=== PATIENT | female | born 1985 | race Caucasian/White ===

== ENCOUNTER 2017-11-23 08:06 | Emergency (ER) | payer BC ==
[2017-11-23 08:11] VITALS: O2SAT 100; BMI 24.3
[2017-11-23] MEDS ORDERED: Sodium Chloride 0.9% 1,000 ML IV STA (08:20)
--- NOTE | 2017-11-23 08:24 | ED PDOC ---
Syncope/Near Syncope/Dizziness Time Seen by Provider: 11/23/17 08:20 History Per: Patient Onset/Duration Of Symptoms: Hrs (1) Current Symptoms Are (Timing): Intermittent Episodes Activity At Onset Of Symptoms: Change In Head Position Associated Symptoms Preceding Syncopal Episode: No Predromal Symptoms (Sudden Onset) Seizure Or Post-ictal Symptoms: None Possible Causative Factor(s): Vertigo Fall Associated With With Symptoms: No Severity: Mild Additional Complaint(s): Dizziness, worse when turning head side to side since this AM. Denies nausea or vomiting. Denies headache or chest pain or palpitations. Feels tingling in fingertips bilat. No weakness. Past Medical History Vital Signs: Last Vital Signs Temp 98 F 11/23/17 08:10 Pulse 77 11/23/17 08:10 Resp BP 127/83 11/23/17 08:10 Pulse Ox 100 11/23/17 08:10 - Medical History PMH: No Chronic Diseases - Family History Family History: States: Unknown Family Hx - Home Medications Home Medications: Ambulatory Orders Medication Instructions Recorded Meclizine [Meclizine*] 25 mg PO Q8 #15 tab 11/23/17 - Allergies Allergies/Adverse Reactions: Allergies Allergy/AdvReac Type Severity Reaction Status Date / Time cefaclor [From [facility] [place]] Allergy RASH Verified 11/23/17 08:24 Review of Systems Cardiovascular: Negative for: Chest Pain, Palpitations Gastrointestinal: Negative for: Nausea, Vomiting Neurological: Positive for: Dizziness. Negative for: Weakness Psych: Positive for: Anxiety Physical Exam - Reviewed Nursing Documentation Reviewed: Yes Vital Signs Reviewed: Yes - Physical Exam Appears: Positive for: Non-toxic, No Acute Distress Head Exam: Positive for: ATRAUMATIC, NORMAL INSPECTION, NORMOCEPHALIC Skin: Positive for: Normal Color, Warm, DRY Eye Exam: Positive for: EOMI, Normal appearance, PERRL ENT: Positive for: Normal ENT Inspection Neck: Positive for: Normal, Painless ROM Cardiovascular/Chest: Positive for: Regular Rate, Rhythm Respiratory: Positive for: CNT, Normal Breath Sounds Gastrointestinal/Abdominal: Positive for: Soft, Tenderness (Lower quads bilat) Back: Positive for: Normal Inspection Extremity: Positive for: Normal ROM Neurologic/Psych: Positive for: Alert, Oriented - Laboratory Results Result Diagrams: 11/23/17 08:30 11/23/17 08:30 - ECG O2 Sat by Pulse Oximetry: 100 Disposition - Clinical Impression Clinical Impression: Vertigo - Patient ED Disposition Is Patient to be Admitted: No Counseled Patient/Family Regarding: Studies Performed, Diagnosis, Need For Followup, Rx Given - Disposition Referrals: Liliana Bradshaw MD [Medical Doctor] - Disposition: Routine/Home Disposition Time: 10:13 Condition: FAIR Prescriptions: Meclizine [Meclizine*] 25 mg PO Q8 #15 tab Instructions: Vertigo (a Type of Dizziness)
[2017-11-23 08:50] LABS: BASO # 0.1 K/uL (0.0-0.2); BASO % 1.1 % (0.0-2.0); EOS # 0.2 K/uL (0.0-0.7); EOS % 2.4 % (0.0-4.0); HEMOGLOBIN 14.5 g/dL (12.0-16.0); LYMPH % 30.2 % (20.0-40.0); MEAN CELL VOLUME 92.2 fl (81.0-99.0); MEAN CORPUSCULAR HGB CONC 33.6 g/dL (33.0-37.0); MEAN PLATELET VOLUME 8.4 fl (7.2-11.7); MONO # 0.5 K/uL (0.0-0.8); MONO % 8.1 % (0.0-10.0); NEUT # 3.8 K/uL (1.8-7.0); NEUT % 58.2 % (50.0-75.0); NRBC % 0.1 % (0.0-0.0); RBC 4.69 Mil/uL (3.80-5.20); WHITE BLOOD COUNT 6.6 K/uL (4.8-10.8)
[2017-11-23 09:03] LABS: ALB/GLOB RATIO 1.5 (1.0-2.1); ALBUMIN 4.4 g/dL (3.5-5.0); ALT/SGPT 23 U/L (9-52); AST/SGOT 19 U/L (14-36); BLOOD UREA NITROGEN 16 mg/dl (7-17); GFR AFRICAN-AMERICAN > 60; GFR NON-AFRICAN AMERICAN > 60
[2017-11-23 10:10] VITALS: BP 107/65; PULSE 56; RESP 18; TEMP 97.8
--- NOTE | 2017-11-23 12:03 | CARD ---
APPROVED REPORT Date of service: 11/23/2017 EKG Measurement Heart [id number] <Conclusion> Normal sinus rhythm Normal ECG
== END 2017-11-23 10:24 | disposition home or self-care (01) ==
LOC: H.ER 08:06
DX: R42 Dizziness and giddiness (principal)
CPT/HCPCS: 80053; 81025; 82948; 85025; 93005; 96360; 96361; 99285; J7030